=== PATIENT | female | born 1980 | race Caucasian/White ===

== ENCOUNTER 2016-04-04 22:10 | Emergency (ER) | payer BC ==
[~2016-04-04] VITALS: Ht 170.2 cm; Wt 55.7 kg
[2016-04-04 22:11] VITALS: BP 132/88
== END 2016-04-05 01:10 | disposition home or self-care (01) ==
LOC: EME 22:10
DX: H65.92 Unspecified nonsuppurative otitis media, left ear (principal); J02.8 Acute pharyngitis due to other specified organisms
CPT/HCPCS: 87651 90; 99281; 99285